=== PATIENT | female | born 1990 | race Caucasian/White ===

== ENCOUNTER 2020-04-14 18:48 | Emergency (ER) | payer OTHER ==
[~2020-04-14] VITALS: Ht 170.2 cm; Wt 56.7 kg
[2020-04-14] MEDS ORDERED: RESTORIL15 M1 (19:06)
[2020-04-14] MEDS ORDERED: WELLBUTRIN SR100 MG (19:06)
[2020-04-14] MEDS ORDERED: KLONOPIN 0.5 MG (19:08)
== END 2020-04-15 01:28 | disposition home or self-care (01) ==
LOC: ER 18:48
DX: R42 Dizziness and giddiness (principal); G44.89 Other headache syndrome; R11.0 Nausea; Z03.818 Encounter for observation for suspected exposure to other biological agents ruled out

== ENCOUNTER 2020-06-05 00:08 | Emergency (ER) | payer OTHER ==
[~2020-06-05] VITALS: Ht 170.2 cm; Wt 57.2 kg
[~2020-06-05 00:08] MED LIST: KLONOPIN 0.5 MG; RESTORIL15 M1; WELLBUTRIN SR100 MG
[2020-06-05] MEDS ORDERED: BUTALB-ACETAMI1 EAC2 PO (02:41)
[2020-06-05] MEDS ORDERED: KETO10TA2 PO (02:41)
== END 2020-06-05 02:49 | disposition home or self-care (01) ==
LOC: ER 00:08
DX: G43.809 Other migraine, not intractable, without status migrainosus (principal); Z03.818 Encounter for observation for suspected exposure to other biological agents ruled out